=== PATIENT | male | born 1960 ===

== ENCOUNTER 2021-12-26 18:42 | Emergency (ER) | payer BC ==
[2021-12-26 20:52] LABS: ANION GAP 17.6 mEq/L (7-13); CHLORIDE,CL 102 mmol/L (98-107); SODIUM,NA 141 mmol/L (136-145)
[2021-12-26 20:55] LABS: ESTIMATED GFR 27 mL/min (>=60)
== END 2021-12-26 20:20 ==
LOC: EDSEX → DL.ED 18:42
DX: I63.9 Cerebral infarction, unspecified (principal); R53.1 Weakness; Z20.822 Contact with and (suspected) exposure to COVID-19; Z72.0 Tobacco use; Z88.0 Allergy status to penicillin
CPT/HCPCS: 36415; 70450; 80053; 80307; 83605; 83735; 84443; 84484; 85025; 85610; 93005; 93010; 99285; U0002